=== PATIENT | female | born 1955 | race Caucasian/White ===

== ENCOUNTER 2017-03-30 08:17 | Emergency (ER) | payer MEDICAID, OTHER ==
[~2017-03-30] VITALS: Ht 170.2 cm; Wt 48.0 kg
[2017-03-30 08:26] VITALS: BP 81/46; PULSE 60; RESP 16; TEMP 98; O2SAT 100
[2017-03-30 08:50] VITALS: BP 91/54; PULSE 60; RESP 16; O2SAT 97
--- NOTE | 2017-03-30 08:55 | PD ---
HPI Chief Complaint: Syncope/Near-Syncope Time Seen by Provider: 08:29 Travel History International Travel<30 days: No Contact w/Intl Traveler<30days: No History of Present Illness HPI 62yo F with PMH of fibromyalgia, pancreatic disease on pancreatic enzymes supplement presents to the ED with c/o 2 episodes of syncope today. States she was walking her dog and she felt lightheaded. She sat down and then tried to walk across the street but fell and passed out once she got to her front door. Pt has a right parietal scalp laceration. States she had some ringing in her ear and dizziness right before she passed out. She then went into her house and passed out again. Denies any fever, cough, chest pain, sob, n/v, abdominal pain, focal weakness or numbness. States that this has happened before but never was evaluated. Pt states she is currently being evaluated for problems with her pancreas and gallbladder and was told she had fluid in her heart and lungs. However, she denies any chest pain, sob, abdominal pain currently. PFSH Social History Tobacco Use: No Allergies-Medications (Allergen,Severity, Reaction): Coded Allergies: Sulfa (Sulfonamide Antibiotics) (Verified Allergy, Unknown, Hives, 03/30/17 ) Reported Meds & Prescriptions Reported Meds & Active Scripts Active Tylenol (Acetaminophen) 325 Mg Tab 650 Mg PO Q6H PRN Reported Duloxetine DR (Duloxetine HCl) 30 Mg Capdr 30 Mg PO DAILY Creon (Pancrelipase) 3,000-9,500-15,000 Units Cap 1 Cap PO TIDPC Pantoprazole (Pantoprazole Sodium) 40 Mg Tab 40 Mg PO DAILY Review of Systems Except as stated in HPI: all other systems reviewed are Neg Physical Exam Narrative GENERAL: 62yo F not in distress. SKIN: Focused skin assessment warm/dry. HEAD: +0.5cm right parietal scalp laceration. EYES: Pupils equal and round at 4mm bilaterally. EOMI. ENT: No septal hematoma. NECK: No midline ttp. No hemotympanum. CARDIOVASCULAR: Regular rate and rhythm. No murmur appreciated. RESPIRATORY: No accessory muscle use. Clear to auscultation. Breath sounds equal bilaterally. GASTROINTESTINAL: Abdomen soft, non-tender, nondistended. MUSCULOSKELETAL: RUE: Mild ttp right elbow. Good range of motion. No ecchymoses. BACK: No midline ttp thoracic or lumbar spine. NEUROLOGICAL: Awake and alert. No obvious cranial nerve deficits. Motor grossly within normal limits. Normal speech. PSYCHIATRIC: Appropriate mood and affect; insight and judgment normal. Data Data Last Documented VS Vital Signs Date Time Temp Pulse Resp B/P (MAP) Pulse Ox O2 Delivery O2 Flow Rate FiO2 03/30/17 11:35 62 16 97/60 (72) 99 03/30/17 09:02 Room Air 03/30/17 08:26 98.0 Orders Orders Electrocardiogram (03/30/17 08:46) Basic Metabolic Panel (Bmp) (03/30/17 08:46) Complete Blood Count With Diff (03/30/17 08:46) Magnesium (Mg) (03/30/17 08:46) Troponin I (03/30/17 08:46) Act Partial Throm Time (Ptt) (03/30/17 08:46) Prothrombin Time / Inr (Pt) (03/30/17 08:46) Urinalysis - C+S If Indicated (03/30/17 08:46) Ct Brain W/O Iv Contrast(Rout) (03/30/17 08:46) Blood Glucose (03/30/17 08:46) Ecg Monitoring (03/30/17 08:46) Iv Access Insert/Monitor (03/30/17 08:46) Oximetry (03/30/17 08:46) Orthostatic Vital Signs (03/30/17 08:46) Chest, Single Ap (03/30/17 ) Elbow, Limited (Ap&Lat) (03/30/17 ) Meclizine (Antivert) (03/30/17 09:30) Sodium Chlor 0.9% 1000 Ml Inj (Ns 1000 M (03/30/17 09:30) Labs Laboratory Tests Test 03/30/17 09:30 03/30/17 10:40 White Blood Count 11.9 TH/MM3 Red Blood Count 3.97 MIL/MM3 Hemoglobin 12.4 GM/DL Hematocrit 36.6 % Mean Corpuscular Volume 92.3 FL Mean Corpuscular Hemoglobin 31.4 PG Mean Corpuscular Hemoglobin Concent 34.0 % Red Cell Distribution Width 12.6 % Platelet Count 251 TH/MM3 Mean Platelet Volume 8.0 FL Neutrophils (%) (Auto) 83.5 % Lymphocytes (%) (Auto) 5.6 % Monocytes (%) (Auto) 7.8 % Eosinophils (%) (Auto) 0.2 % Basophils (%) (Auto) 2.9 % Neutrophils # (Auto) 10.0 TH/MM3 Lymphocytes # (Auto) 0.7 TH/MM3 Monocytes # (Auto) 0.9 TH/MM3 Eosinophils # (Auto) 0.0 TH/MM3 Basophils # (Auto) 0.3 TH/MM3 CBC Comment DIFF FINAL Differential Comment Prothrombin Time 11.1 SEC Prothromb Time International Ratio 1.0 RATIO Activated Partial Thromboplast Time 25.8 SEC Blood Urea Nitrogen 11 MG/DL Creatinine 0.84 MG/DL Random Glucose 95 MG/DL Calcium Level 9.2 MG/DL Magnesium Level 2.5 MG/DL Sodium Level 136 MEQ/L Potassium Level 4.0 MEQ/L Chloride Level 99 MEQ/L Carbon Dioxide Level 31.3 MEQ/L Anion Gap 6 MEQ/L Estimat Glomerular Filtration Rate 69 ML/MIN Troponin I LESS THAN 0.02 NG/ML Urine Collection Type CLEAN CATCH Urine Color YELLOW Urine Turbidity MOD Urine pH 8.5 Urine Specific [place] 1.010 Urine Protein NEG mg/dL Urine Glucose (UA) NEG mg/dL Urine Ketones NEG mg/dL Urine Occult Blood NEG Urine Nitrite NEG Urine Bilirubin NEG Urine Leukocyte Esterase NEG Urine WBC 0-2 /hpf Urine Squamous Epithelial Cells 0-5 /hpf Urine Amorphous Sediment LARGE Microscopic Urinalysis Comment CULT NOT INDICATED Urine Collection Time 10:40 MDM Medical Decision Making Medical Screen Exam Complete: Yes Emergency Medical Condition: Yes Interpretation(s) EKG: Sinus bradycardia at 52bpm. Normal axis. QTc 444ms. Differential Diagnosis Vasovagal syncope vs. cardiac arrhythmia vs. vertigo vs. dehydration vs. hypoglycemia Narrative Course 62yo F with 2 episodes of syncope. Likely vasovagal reflex syncope but I was concern because pt passed out while walking. Pt had another episode few months ago but did not seek medical attention. Labs reviewed, WBC 11.9. H/H normal. Troponin negative. Magnesium normal. BMP unremarkable. CT brain showed no acute intracranial abnormality. Small posterior right parietal scalp hematoma. Scalp laceration repaired with 2 chente after irrigation. Pt up to date on tetanus. CXR showed no acute disease. Xray right elbow unremarkable. Pt given NS IVF and meclizine. Blood glucose was 67, pt given juice. Negative orthostatics but pt's blood pressure is low. UA showed no leukocyte. Culture not indicated. BP is low but pt states this is her baseline. Pt reevaluated at bedside and states she feels fine and wants to go home. I recommend admission for syncope work up but pt is refusing. Pt states she will follow up with primary care physician and return if symptoms worsen. Procedures Procedure Narrative LACERATION LOCATION: Right parietal scalp LENGTH: 1cm NUMBER OF STITCHES/CHENTE: 2 Chente REPAIR: The wound was copiously irrigated and explored without evidence of foreign body, tendon injury or neurovascular injury. The wound was closed using chente. This was a single layer repair. Patient tolerated the procedure well. Diagnosis Primary Impression: Syncope Qualified Codes: R55 - Syncope and collapse Patient Instructions: General Instructions Departure Forms: Tests/Procedures Additional Instructions: Please return to the ED if symptoms worsen. Please have chente removed in 5 days. Please follow up with your primary care physician in 1-2 days. Med/Other Pt SpecificInfo: Prescription(s) given Scripts Acetaminophen (Tylenol) 325 Mg Tab 650 MG PO Q6H Y for PAIN SCALE 1 TO 4, #20 TAB 0 Refills Prov: Yasemin Jaramillo DO 03/30/17 Disposition: 01 DISCHARGE HOME Condition: Stable Yasemin Jaramillo DO Mar 30, 2017 08:55
[2017-03-30 09:02] VITALS: RESP 16; O2SAT 98
[2017-03-30] MEDS ORDERED: DULO1CAP2 PO (09:14)
[2017-03-30] MEDS ORDERED: PANT40TA3 PO (09:14)
[2017-03-30] MEDS ORDERED: CREO3000 PO (09:14)
--- NOTE | 2017-03-30 09:23 | RADRPT ---
EXAM DATE/TIME: 03/30/2017 09:00 [facility] COMPARISON: No previous studies available for comparison. INDICATIONS : Dizziness. Two syncopal episodes this morning, hit back of head. Cephalgia. RADIATION DOSE: 60.80 CTDIvol (mGy) MEDICAL HISTORY : Low blood pressure. SURGICAL HISTORY : None. ENCOUNTER: Initial ACUITY: 1 day PAIN SCALE: 3/10 LOCATION: cranial TECHNIQUE: Multiple contiguous axial images were obtained of the head. Using automated exposure control and adj ustment of the mA and/or kV according to patient size, radiation dose was kept as low as reasonably a chievable to obtain optimal diagnostic quality images. DICOM format image data is available electro nically for review and comparison. FINDINGS: CEREBRUM: The ventricles are normal for age. No evidence of midline shift, mass lesion, hemorrhage or acute in farction. No extra-axial fluid collections are seen. POSTERIOR FOSSA: The cerebellum and brainstem are intact. The 4th ventricle is midline. The cerebellopontine angle i s unremarkable. EXTRACRANIAL: The visualized portion of the orbits is intact. Small posterior right parietal scalp hematoma. SKULL: The calvaria is intact. No evidence of skull fracture. CONCLUSION: 1. No acute intracranial abnormality. 2. Small posterior right parietal scalp hematoma. Jonnie Reese MD on March 30, 2017 at 9:20 Board Certified Radiologist. This report was verified electronically.
[2017-03-30] MEDS ORDERED: MECLIZINE HCL 25 MG TAB PO ONE (09:30)
[2017-03-30] MEDS ORDERED: SODIUM CHLOR 0.9% 1000 ML INJ 1,000 ML IV ONE (09:30)
[2017-03-30 09:41] VITALS: BP_SYST 81; BP_SYST 89; BP_SYST 96; BP_DIAS 46; BP_DIAS 50; BP_DIAS 54; RESP 16
[2017-03-30 09:44] LABS: BASOPHIL # 0.3 TH/MM3 (0-0.2); BASOPHIL % 2.9 % (0.0-2.0); EOSINOPHIL % 0.2 % (0.0-4.0); HEMATOCRIT 36.6 % (35.0-46.0); LYMPH % 5.6 % (9.0-44.0); LYMPHOCYTE # 0.7 TH/MM3 (1.0-4.8); MEAN CELL VOLUME 92.3 FL (80.0-100.0); MEAN CORPUSCULAR HEMOGLOBIN 31.4 PG (27.0-34.0); MONO % 7.8 % (0.0-8.0); NEUT % 83.5 % (16.0-70.0); PLATELET COUNT 251 TH/MM3 (150-450); RED BLOOD COUNT 3.97 MIL/MM3 (4.00-5.30); RED CELL DISTRIBUTION WIDTH 12.6 % (11.6-17.2); WHITE BLOOD COUNT 11.9 TH/MM3 (4.0-11.0)
[2017-03-30 09:45] LABS: HEMO FLAGS DIFF FINAL
[2017-03-30 09:56] LABS: BICARBONATE 31.3 MEQ/L (21.0-32.0); MAGNESIUM 2.5 MG/DL (1.5-2.5)
[2017-03-30 09:57] LABS: APTT (PATIENT) 25.8 SEC (24.3-30.1); PROTHROMBIN TIME - PATIENT 11.1 SEC (9.8-11.6)
--- NOTE | 2017-03-30 09:58 | RADRPT ---
EXAM DATE/TIME: 03/30/2017 09:46 [facility] COMPARISON: No previous studies available for comparison. INDICATIONS : Syncope, fall, right elbow tenderness. MEDICAL HISTORY : None. SURGICAL HISTORY : None. ENCOUNTER: Initial ACUITY: 1 day PAIN SCORE: 2/10 LOCATION: Right elbow FINDINGS: Two view examination of the right elbow demonstrates no soft tissue swelling, joint effusion, fractur e or dislocation. Bony mineralization is normal. CONCLUSION: Unremarkable limited examination of the right elbow. Clayton Pearl MD on March 30, 2017 at 9:56 Board Certified Radiologist. This report was verified electronically.
[2017-03-30 10:00] LABS: GLOMERULAR FILTRATION RATE 69 ML/MIN (>89)
[2017-03-30 10:01] LABS: ANION GAP 6 MEQ/L (5-15); CHLORIDE 99 MEQ/L (98-107); SODIUM (NA) 136 MEQ/L (136-145)
[2017-03-30 10:06] LABS: BLOOD UREA NITROGEN 11 MG/DL (7-18)
--- NOTE | 2017-03-30 10:07 | RADRPT ---
EXAM DATE/TIME: 03/30/2017 09:45 [facility] COMPARISON: No previous studies available for comparison. INDICATIONS : Syncope. MEDICAL HISTORY : low blood pressure SURGICAL HISTORY : None. ENCOUNTER: Initial ACUITY: 1 day PAIN SCORE: 0/10 LOCATION: Bilateral chest FINDINGS: A single view of the chest demonstrates the lungs to be symmetrically aerated without evidence of mas s, infiltrate or effusion. The cardiomediastinal contours are unremarkable. Osseous structures are intact. CONCLUSION: No acute disease. Clayton Pearl MD on March 30, 2017 at 10:05 Board Certified Radiologist. This report was verified electronically.
[2017-03-30 10:27] LABS: BLOOD, URINE NEG (NEG); GLUCOSE,URINE NEG (NEG); KETONE, URINE NEG (NEG); NITRITE,URINE NEG (NEG); PH, URINE 8.5 (5.0-8.5)
[2017-03-30 10:48] LABS: METHOD OF COLLECTION CLEAN CATCH; SQUAMOUS EPITHELIAL CELL URINE 0-5 /hpf (0-5); URINE COLOR YELLOW (YELLW/STRAW); WBC, URINE 0-2 /hpf (0-5)
[2017-03-30 10:49] LABS: COMMENT (UR) CULT NOT INDICATED; CULTURE IF INDICATED CULT NOT INDICATED
[2017-03-30] MEDS ORDERED: TYLE325T PO (11:10)
[2017-03-30 11:35] VITALS: BP 97/60
--- NOTE | 2017-03-30 14:13 | EKG ---
Date Performed: 03/30/2017 Time Performed: 09:20:35 PTAGE: 62 years EKG: SINUS BRADYCARDIA BORDERLINE ECG NO PREVIOUS TRACING DOCTOR: Chase Gamez Interpretating Date/Time 03/30/2017 14:12:46
== END 2017-03-30 12:06 | disposition home or self-care (01) ==
LOC: PHED 08:17
DX: S01.01XA Laceration without foreign body of scalp, initial encounter (principal); R55 Syncope and collapse; R00.1 Bradycardia, unspecified; W18.39XA Other fall on same level, initial encounter
CPT/HCPCS: 12001; 70450; 71010; 73070; 80048; 81001; 83735; 84484; 85025; 85610; 85730; 93005; 96360; 99285; J7030